=== PATIENT | male | born 1985 | race Caucasian/White ===

== ENCOUNTER 2022-08-22 14:28 | Emergency (ER) | payer MEDICAID ==
[~2022-08-22] VITALS: Ht 190.5 cm; Wt 86.2 kg
[2022-08-22 14:40] VITALS: BP_SYST 126
--- NOTE | 2022-08-22 14:45 | NUR ---
PT FROM HOME WITH CC OF DIFFICULTY OF TAKING FULL BREATH, PALPITATIONS FOR SEVERAL MONTHS, RELIEVED AT THIS TIME.
--- NOTE | 2022-08-22 14:50 | NUR ---
ER at bedside examining patient.
--- NOTE | 2022-08-22 16:00 | NUR ---
Patient left without being seen.
== END 2022-08-22 15:45 | disposition left against medical advice (07) ==
LOC: SED 14:28
DX: R00.2 Palpitations (principal)
CPT/HCPCS: 93005; 99283

== ENCOUNTER 2022-09-25 18:16 | Emergency (ER) | payer MEDICAID ==
[~2022-09-25] VITALS: Ht 190.5 cm; Wt 86.2 kg
[2022-09-25 18:35] VITALS: BP_SYST 125
--- NOTE | 2022-09-25 18:53 | NUR ---
Placed in room 01 . Placed on long term acute care registered nurse, blood pressure machine and pulse oximeter. To gown for exam. Side rails up.
--- NOTE | 2022-09-25 19:15 | NUR ---
COVID-19 SWAB SENT TO LAB.
--- NOTE | 2022-09-25 19:53 | NUR ---
Pt awake in bed, mother at bedside. Pleasently cooperative at this time. Appears in no acute distress. Pt states he hears voices in his head telling him to kill himself, but he ignores them. Pt denies having or being told a plan to kill himself and denies plan to follow through with what the voices are telling him. Pt states he wants to voluntarily go to [facility].
[2022-09-25 19:54] LABS: BASOPHILS # (AUTO) 0.1 K/uL (0.0-0.2); BASOPHILS % (AUTO) 2.2 % (0.0-2.0); EOSINOPHILS # (AUTO) 0.1 K/uL (0.0-0.4); EOSINOPHILS % (AUTO) 1.7 % (0.0-4.0); HEMATOCRIT 38.1 % (36-54); LYMPHOCYTES # (AUTO) 1.2 K/uL (1.0-5.5); LYMPHOCYTES % (AUTO) 17.7 % (20.5-51.5); MEAN CORPUSCULAR HEMOGLOBIN 28 pg (27-31); MEAN CORPUSCULAR HGB CONC 34 % (32-36); MEAN CORPUSCULAR VOLUME 83 fL (79.0-98.0); MONOCYTES # (AUTO) 0.5 K/uL (0.0-1.0); MONOCYTES % (AUTO) 7.2 % (1.7-9.3); NEUTROPHILS # (AUTO) 4.7 K/uL (1.8-7.7); NEUTROPHILS % (AUTO) 71.2 % (40.0-70.0); PLATELET COUNT (AUTO) 201 K/uL (130-430); RED BLOOD CELL COUNT(AUTO) 4.58 MIL/uL (4.2-6.2); RED CELL DISTRIBUTION WIDTH 13.6 % (9.0-15.0); WHITE BLOOD COUNT (AUTO) 6.6 K/uL (4.8-10.8)
[2022-09-25 20:01] LABS: ANION GAP 4 (5-15); CALCIUM 8.5 mg/dL (8.4-11.0); CHLORIDE 103 mmol/L (98-107); CREATININE 1.21 mg/dL (0.55-1.30); GLUCOSE 99 mg/dL (70-99); UREA NITROGEN, BLOOD 13 mg/dL (8-21)
[2022-09-25 20:06] LABS: ACETAMINOPHEN < 1 ug/mL (1-30); ALANINE AMINOTRANSFERASE 22 U/L (12-78); ALBUMIN 3.8 g/dL (3.4-4.8); ASPARTATE AMINOTRANSFERASE 17 U/L (10-37); TOTAL BILIRUBIN 0.3 mg/dL (0.0-1.0)
[2022-09-25 20:07] LABS: ALCOHOL, BLOOD < 3 mg/dL (<10); GFR AFRICAN AMERICAN 86 mL/min (>90)
[2022-09-25 20:38] LABS: BILIRUBIN,URINE NEGATIVE (NEGATIVE); BLOOD, URINE NEGATIVE (NEGATIVE); CLARITY/URINE CLEAR (CLEAR); COLOR,URINE YELLOW (YELLOW); GLUCOSE,URINE NEGATIVE (NEGATIVE); KETONES,URINE NEGATIVE (NEGATIVE); LEUKOCYTE ESTERASE ,URINE NEGATIVE (NEGATIVE); NITRITE, URINE NEGATIVE (NEGATIVE); PH,URINE 6.5 (5.0-8.0); PROTEIN URINE NEGATIVE (NEGATIVE); UROBILINOGEN,URINE 0.2 (0.2-1.0)
[2022-09-25 20:54] LABS: BARBITURATE, URINE NEGATIVE (NEG <=200); BENZODIAZEPINE, URINE NEGATIVE (NEG <=150); CANNABINOID, URINE NEGATIVE (NEG <=50); COCAINE, URINE NEGATIVE (NEG <=150); METHAMPHETAMINES SCREEN,URINE POSITIVE (NEG <=500); OPIATE, URINE NEGATIVE (NEG <=100); PHENCYCLIDINE SCREEN,URINE NEGATIVE (NEG <=25); UR TRICYCLIC ANTIDEPRESSANTS NEGATIVE (NEG <=300); URINE AMPHETAMINE POSITIVE (NEG <=500); URINE METHADONE NEGATIVE (NEG <=200); URINE OXYCODONE SCREEN NEGATIVE (NEG <=100); URINE PROPOXYPHENE SCREEN NEGATIVE (NEG <=300)
[2022-09-25 21:24] VITALS: BP_SYST 128
[2022-09-26 06:50] LABS: LITHIUM 0.87 mEq/L (0.50-1.0)
== END 2022-09-25 21:24 | disposition home or self-care (01) ==
LOC: SED 18:16
DX: R44.1 Visual hallucinations (principal); R44.0 Auditory hallucinations; Z79.899 Other long term (current) drug therapy; Z20.822 Contact with and (suspected) exposure to COVID-19
CPT/HCPCS: 99283; 87426; 80307; 80053; 80178; 85025; 36415; 81003; G0482; G0480; G0481